=== PATIENT | female | born 1955 | race Caucasian/White ===

== ENCOUNTER 2016-12-25 09:00 | Emergency (ER) | payer MEDICAID ==
[2016-12-25 09:08] VITALS: BMI 24.5
[2016-12-25 09:20] VITALS: TEMP 98.5; O2SAT 100
[2016-12-25] MEDS ORDERED: Albuterol 0.083% Inhal Sol (2.5 mg/3 mL) UD ONE (09:22)
--- NOTE | 2016-12-25 09:54 | C.PDOC ---
History Of Present Illness Patient is a 60 year old female, with PMHx of HTN, presents to the ED to check if her blood pressure is stable. Patient states that she was seen at [facility] 9 days ago, was found to have low BP at the time, and was told to stop taking her Metoprolol until she sees her PMD. However, pt states she was unable to follow up with PMD due to insurance reasons. Notes that she has not taken her BP medicine for the last 9 days. Pt is here today to check if her blood pressure is stable. Upon arrival to ED, patient's BP was 137/75. In addition, pt states that she is unable to sleep at night, and is requesting prescription for sleeping pills. Upon further questioning, pt states that she has intermittent palpitations, but is unclear about how long she had it for. Otherwise, denies any chest pain, shortness of breath, cough, nausea, vomiting, abdominal pain, headache, dizziness, neck pain, fever, chills, or any other associated symptoms at this time. Time Seen by Provider: 12/25/16 09:17 Chief Complaint (Nursing): Headache History Per: Patient History/Exam Limitations: no limitations Onset/Duration Of Symptoms: Days (9) Current Symptoms Are (Timing): Still Present Preceeding Symptoms: None. denies: Visual Disturbances, Known Migraine Symptoms Associated Symptoms: denies: Photophobia, Blurred Vision, Nausea, Vomiting, Extremity Weakness Recent travel outside of the [place]: No Additional History Per: Patient Past Medical History Reviewed: Historical Data, Nursing Documentation, Vital Signs Vital Signs: Last Vital Signs Temp 98.5 F 12/25/16 09:09 Pulse 78 12/25/16 09:54 Resp 16 12/25/16 09:54 BP 123/72 12/25/16 09:54 Pulse Ox 100 12/25/16 10:05 - Medical History PMH: Anxiety, Deep Vein Thrombosis (RIGHT ARM; on Xarelto), Gastritis (2004), HTN Surgical History: Endoscopy (2004) Family History: States: Diabetes, Hypertension - Social History Hx Tobacco Use: No Hx Alcohol Use: No - Immunization History Hx Tetanus Toxoid Vaccination: No Hx Influenza Vaccination: No Hx Pneumococcal Vaccination: No Review Of Systems Except As Marked, All Systems Reviewed And Found Negative. Constitutional: Negative for: Fever, Chills Cardiovascular: Positive for: Palpitations. Negative for: Chest Pain, Edema, Light Headedness Respiratory: Negative for: Cough, Shortness of Breath, Hemoptysis, Sputum Gastrointestinal: Negative for: Nausea, Vomiting, Abdominal Pain Genitourinary: Negative for: Dysuria, Frequency, Hematuria Musculoskeletal: Negative for: Neck Pain Skin: Negative for: Rash, Bruising Neurological: Negative for: Weakness, Numbness, Headache, Dizziness Physical Exam - Physical Exam Appears: Non-toxic, No Acute Distress Skin: Normal Color, Warm, Dry, No Rash Head: Atraumatic, Normacephalic Eye(s): bilateral: Normal Inspection Oral Mucosa: Moist Neck: Normal ROM, Supple Chest: Symmetrical, No Tenderness Cardiovascular: Rhythm Regular, No Murmur Respiratory: Normal Breath Sounds, No Rales, No Rhonchi, No Wheezing Gastrointestinal/Abdominal: Soft, No Tenderness Extremity: Bilateral: Atraumatic, Normal ROM Neurological/Psych: Oriented x3, Normal Speech, Normal Cognition ED Course And Treatment ECG: Interpreted By Me, Viewed By Me ECG Rhythm: Sinus Rhythm ECG Interpretation: No Acute Changes Interpretation Of ECG: No acute ST elevation or depression. Rate From EC (bpm) O2 Sat by Pulse Oximetry: 100 (RA) Pulse Ox Interpretation: Normal Medical Decision Making Medical Decision Making: Impression: 60 y/o female, with PMHx of HTN, presents to check if her blood pressure is stable. Pt has not taken BP medicine for 9 days. Plan: * EKG * Reassess and disposition Progress note: On re-evaluation, patient is resting comfortably, no acute distress. No chest pain, or shortness of breath. Patient is being discharged home, and is instructed to follow up with PMD in 1-2 days. Disposition Counseled Patient/Family Regarding: Diagnosis, Need For Followup - Disposition Referrals: [facility] [Outside] Disposition: HOME/ ROUTINE Disposition Time: 10:09 Condition: STABLE Forms: Gen Discharge Inst Latvian - POA Present On Arrival: None - Clinical Impression Clinical Impression: Encounter for medical assessment - Scribe Statement The provider has reviewed the documentation as recorded by the Scribe Sophia Church All medical record entries made by the Scribe were at my direction and personally dictated by me. I have reviewed the chart and agree that the record accurately reflects my personal performance of the history, physical exam, medical decision making, and the department course for this patient. I have also personally directed, reviewed, and agree with the discharge instructions and disposition.
[2016-12-25 09:55] VITALS: BP 123/72; PULSE 78; RESP 16
--- NOTE | 2017-01-06 12:39 | CARD ---
APPROVED REPORT EKG Measurement Heart [id number] [id number] <Conclusion> Normal sinus rhythm Normal ECG
== END 2016-12-25 10:30 | disposition home or self-care (01) ==
LOC: C.ER 09:00
DX: Z00.00 Encounter for general adult medical examination without abnormal findings (principal)

== ENCOUNTER 2017-03-03 09:54 | Emergency (ER) | payer OTHER ==
[2017-03-03 10:05] VITALS: TEMP 98; BMI 23.6
[2017-03-03] MEDS ORDERED: Sodium Chloride 0.9% 1,000 ML IV ONE (10:23)
--- NOTE | 2017-03-03 10:39 | RAD ---
PROCEDURE: CHEST RADIOGRAPH, 1 VIEW HISTORY: r/o infiltrate COMPARISON: Frontal chest radiograph 07/31/2014. FINDINGS: LUNGS: Clear. PLEURA: No pneumothorax or pleural fluid seen. CARDIOVASCULAR: Normal. OSSEOUS STRUCTURES: No significant abnormalities. VISUALIZED UPPER ABDOMEN: Normal. OTHER FINDINGS: Prior right PICC now removed. IMPRESSION: No interval acute cardiopulmonary disease appreciated.
[2017-03-03] MEDS ORDERED: Sodium Chloride 0.9% 1,000 ML ONE (10:48)
[2017-03-03 11:33] LABS: URINE BILIRUBIN NEGATIVE (NEGATIVE); URINE BLOOD 2+ (NEGATIVE); URINE COLOR Straw (YELLOW); URINE GLUCOSE (UA) NORMAL (Normal); URINE KETONE NEGATIVE (NEGATIVE); URINE LEUKOCYTE ESTERASE NEG Leu/uL (Negative); URINE PROTEIN NEGATIVE (NEGATIVE); URINE UROBILINOGEN NORMAL mg/dL (0.2-1.0); WBC URINE < 1 /hpf (0-5)
[2017-03-03 11:35] LABS: RBC URINE 9 /hpf (0-3)
[2017-03-03 11:40] LABS: CHLORIDE 100 mmol/L (98-107); POTASSIUM 4.6 mmol/L (3.6-5.2); SODIUM 136 mmol/L (132-148)
[2017-03-03 11:42] LABS: ALB/GLOB RATIO 1.1 (1.0-2.1); AST/SGOT 41 U/L (14-36); BILIRUBIN,TOTAL 1.2 mg/dL (0.2-1.3); CARBON DIOXIDE 28 mmol/L (22-30); GFR AFRICAN-AMERICAN > 60; TOTAL PROTEIN 8.9 g/dL (6.3-8.3)
[2017-03-03 11:43] LABS: ALKALINE PHOSPHATASE 111 U/L (38-126); ALT/SGPT 32 U/L (9-52); BLOOD UREA NITROGEN 12 mg/dL (7-17); GLUCOSE,RANDOM 72 mg/dL (65-105)
[2017-03-03 11:53] LABS: BASO # 0.1 K/uL (0.0-0.2); BASO % 0.7 % (0.0-2.0); EOS # 0.1 K/uL (0.0-0.7); EOS % 1.8 % (0.0-4.0); HEMATOCRIT 33.7 % (34.0-47.0); LYMPH # 3.7 K/uL (1.0-4.3); LYMPH % 44.5 % (20.0-40.0); MEAN CELL VOLUME 87.8 fL (81.0-99.0); MEAN CORPUSCULAR HEMOGLOBIN 29.4 pg (27.0-31.0); MEAN CORPUSCULAR HGB CONC 33.5 g/dL (33.0-37.0); MEAN PLATELET VOLUME 7.8 fL (7.2-11.7); MONO # 0.6 K/uL (0.0-0.8); MONO % 7.3 % (0.0-10.0); RED CELL DISTRIBUTION WIDTH 13.2 % (11.5-14.5); WHITE BLOOD COUNT 8.3 K/uL (4.8-10.8)
[2017-03-03 12:39] VITALS: BP 128/59; PULSE 93; RESP 16; O2SAT 96
--- NOTE | 2017-03-03 14:12 | C.PDOC ---
History Of Present Illness 61 year old female presents to the ED with complaints of dizziness since yesterday. Patient reports pain to the right arm yesterday that has since resolved. She notes she experienced similar symptoms two years ago and took Meclizine with relief. Patient denies fever, cough, nausea, vomiting, chest pain , or shortness of breath. PMD: Dr. Cody Chief Complaint (Nursing): Dizziness/Lightheaded History Per: Patient History/Exam Limitations: no limitations Onset/Duration Of Symptoms: Days (1 day ) Current Symptoms Are (Timing): Still Present Seizure Or Post-ictal Symptoms: None Fall Associated With With Symptoms: No Recent travel outside of the [place]: No Past Medical History Reviewed: Historical Data, Nursing Documentation, Vital Signs Vital Signs: Last Vital Signs Temp 98.0 F 03/03/17 10:01 Pulse 93 H 03/03/17 12:38 Resp 16 03/03/17 12:38 BP 128/59 L 03/03/17 12:38 Pulse Ox 96 03/03/17 14:32 - Medical History PMH: Anxiety, Deep Vein Thrombosis (RIGHT ARM; on Xarelto), Gastritis (2004), HTN Surgical History: Endoscopy (2004) Family History: States: Diabetes, Hypertension - Social History Hx Tobacco Use: No Hx Alcohol Use: No Hx Substance Use: No - Immunization History Hx Tetanus Toxoid Vaccination: No Hx Influenza Vaccination: No Hx Pneumococcal Vaccination: No Review Of Systems Constitutional: Negative for: Fever, Chills Cardiovascular: Negative for: Chest Pain Respiratory: Negative for: Shortness of Breath Gastrointestinal: Negative for: Nausea, Vomiting, Abdominal Pain, Diarrhea Neurological: Positive for: Dizziness. Negative for: Weakness, Numbness, Headache Physical Exam - Physical Exam Appears: Non-toxic, No Acute Distress Skin: Warm, Dry Head: Atraumatic, Normacephalic, No Tenderness, No Swelling, No Abrasion, No Laceration Eye(s): bilateral: Normal Inspection, PERRL, EOMI Ear(s): Bilateral: Normal Oral Mucosa: Moist Neck: Normal ROM, No Midline Cervical Tenderness, No Paracervical Tenderness, Supple Chest: Symmetrical, No Deformity, No Tenderness Cardiovascular: Rhythm Regular, No Murmur Respiratory: No Rales, No Rhonchi, No Wheezing, Other (clear to auscultation bilaterally ) Gastrointestinal/Abdominal: Soft, No Tenderness, No Distention, No Guarding, No Rebound Extremity: Normal ROM, No Tenderness, No Pedal Edema, No Calf Tenderness, Capillary Refill (good capillary refill, less than two seconds ), No Deformity, No Swelling Neurological/Psych: Oriented x3, Normal Speech, Normal Cognition, Normal Cranial Nerves, No Cerebellar Signs, Normal Motor, Normal Sensation Gait: Steady ED Course And Treatment - Laboratory Results Result Diagrams: 03/03/17 11:40 03/03/17 11:24 ECG: Interpreted By Me, Viewed By Me ECG Rhythm: Sinus Rhythm Interpretation Of ECG: Normal axis and rhythm. Rate From EC O2 Sat by Pulse Oximetry: 96 (RA) - Radiology CXR: Interpreted by Me, Viewed By Me CXR Interpretation: Yes: No Acute Disease Progress Note: EKG, CXR, UA, and blood work was ordered. Patient was given antivert and IV fluids. On re-evaluation, patient notes she feels better and is ready to be discharged. Disposition - Disposition Referrals: Terrance Cody Jr., MD [Medical Doctor] - Disposition: HOME/ ROUTINE Disposition Time: 12:00 Condition: IMPROVED Additional Instructions: Thank you for letting us take care of you today. Your provider was Dr. Mayorga. You were treated for dizziness. The emergency medical care you received today was directed at your acute symptoms. If you were prescribed any medication, please fill it and take as directed. It may take several days for your symptoms to resolve. Return to the Emergency Department if your symptoms worsen, do not improve, or if you have any other problems. Please contact your doctor or call one of the physicians/clinics you have been referred to that are listed on the Patient Visit Information form that is included in your discharge packet. Bring any paperwork you were given at discharge with you along with any medications you are taking to your follow up visit. Our treatment cannot replace ongoing medical care by a primary care provider (PCP) outside of the emergency department. Thank you for allowing the [facility] team to be part of your care today. Follow up with your doctor in 3-4 days for re-evaluation and further management. Yesy por permitirnos cuidar de usted hoy. Casillas proveedor fue el Dr. Mayorga. Usted fue tratado por mareos. La atencin mdica de emergencia que recibi hoy estaba dirigida a amanda sntomas agudos. Si le recetaron algn medicamento, ll bayron y tome toshia se le indic. Puede llevar varios esquivel resolver amanda sntomas. Regrese al Departamento de Emergencias si amanda sntomas empeoran, no mejoran o si tiene algn otro problema. Comunquese con casillas mdico o llame a mir de los mdicos / clnicas a los que booker sido derivado que figuran en el formulario de informacin de visita del paciente que se incluye en casillas paquete de bryn. Lleve consigo cualquier papeleo que reciba al byrn junto con cualquier medicamento que est tomando en casillas visita de seguimiento. Nuestro tratamiento no puede reemplazar la atencin m dica continua de un proveedor de atencin primaria (PCP) fuera del departamento de emergencias. Yesy por permitir que el equipo [facility] sea parte de casillas atencin hoy. Glo un seguimiento con casillas mdico en 3-4 esquivel para jesu reevaluacin y administracin adicional. Prescriptions: Meclizine [Meclizine*] 25 mg PO Q6 PRN #20 tab PRN Reason: Dizziness Instructions: Dizziness (ED) Forms: Gen Discharge Inst Iranian Print Language: ITALIAN - Clinical Impression Clinical Impression: Dizziness - Scribe Statement The provider has reviewed the documentation as recorded by the Scribe Dejah Sanchez All medical record entries made by the Scribe were at my direction and personally dictated by me. I have reviewed the chart and agree that the record accurately reflects my personal performance of the history, physical exam, medical decision making, and the department course for this patient. I have also personally directed, reviewed, and agree with the discharge instructions and disposition.
--- NOTE | 2017-03-09 14:34 | CARD ---
APPROVED REPORT EKG Measurement Heart [id number] 124P19 [id number] <Conclusion> Normal sinus rhythm Normal ECG
== END 2017-03-03 12:38 | disposition home or self-care (01) ==
LOC: C.ER 09:54
DX: R42 Dizziness and giddiness (principal)
CPT/HCPCS: 71010; 80053; 81001; 82948; 84484; 85025; 93005; 96360; 99285; J7040